=== PATIENT | female | born 1975 | race Caucasian/White ===

== ENCOUNTER → 2018-07-03 | Outpatient (CLI) | payer MEDICAID ==
[~2018-07-03] MED LIST: GADOBUTROL 10 ML VIAL IVP ONE
== END ==
LOC: FIMAGING 11:33
PROVIDERS: ATTEND Physician Assistant Medical
DX: G51.0 Bell's palsy (principal); H93.12 Tinnitus, left ear; G43.109 Migraine with aura, not intractable, without status migrainosus
CPT/HCPCS: A9585